=== PATIENT | female | born 1960 | race Caucasian/White ===

== ENCOUNTER 2016-09-10 15:46 | Emergency (ER) | payer BC, OTHER ==
[2016-09-10 16:16] VITALS: BP 120/66
--- NOTE | 2016-09-10 16:55 | UC ---
Hip/Pelvis Pain - HPI Summary HPI Summary: 4-6 weeks of bilateral hip (actually illiac crest) no know injury - History Of Current Complaint Chief Complaint: UCBackPain Stated Complaint: BILATERAL HIP PAIN Time Seen by Provider: 09/10/16 16:49 Hx Obtained From: Patient ?: No Mechanism Of Injury: n/a Onset/Duration: Gradual Onset, Lasting Weeks - 6, Still Present Timing: Constant Severity Initially: Mild Severity Currently: Mild Pain Intensity: 4 Pain Scale Used: 0-10 Numeric Location: Discrete At: - R&L illiac crests Character Of Pain: Aching Aggravating Factor(s): Movement Alleviating Factor(s): Nothing Associated Signs And Symptoms: Positive: Negative - Allergies/Home Medications Allergies/Adverse Reactions: Allergies Allergy/AdvReac Type Severity Reaction Status Date / Time Erythromycin Allergy Severe Anaphylatic Verified 09/03/13 08:11 Shock Bee Venom Allergy Unknown Verified 09/10/16 16:18 Reaction Details Meperidine [From Demerol HCl] Allergy hallucinate Verified 11/07/14 13:32 Home Medications: Home Medications Simvastatin TAB(NF) [Zocor(NF)] 20 mg PO 1700 09/10/16 [History Confirmed ] PMH/Surg Hx/FS Hx/Imm Hx Previously Healthy: Yes Endocrine History Of: Denies: Diabetes, Thyroid Disease Cardiovascular History Of: Denies: Cardiac Disorders, Hypertension, Pacemaker/ICD Respiratory History Of: Denies: COPD, Asthma GI/ History Of: Denies: Ulcer - Surgical History Surgical History: Yes Surgery Procedure, Year, and Place: TOTAL HYSTERECTOMY 1998. OVARIAN CYSTECTOMY 1981. TONSILLECTOMY - Family History Known Family History: Positive: None Family History: no reported cardiovascular issues in family lineage - Social History Occupation: Employed Full-time Lives: With Family Alcohol Use: None Substance Use Type: None Smoking Status (MU): Former Smoker Type: Cigarettes When Did the Patient Quit Smoking/Using Tobacco: 35 YRS AGO Household Exposure Type: Cigarettes - Immunization History Most Recent Tetanus Shot: 2008 Review of Systems Constitutional: Negative Skin: Negative Eyes: Negative ENT: Negative Respiratory: Negative Cardiovascular: Negative Gastrointestinal: Negative Genitourinary: Negative Motor: Negative Neurovascular: Negative Musculoskeletal: Arthralgia - R&L illiac Crests Neurological: Negative Psychological: Negative All Other Systems Reviewed And Are Negative: Yes Physical Exam Triage Information Reviewed: Yes Appearance: Well-Appearing, No Pain Distress, Obese Vital Signs: Initial Vital Signs Temp 98.1 F 09/10/16 16:12 Pulse 79 09/10/16 16:12 Resp 14 09/10/16 16:12 BP 120/66 09/10/16 16:12 Pulse Ox 100 09/10/16 16:12 Vital Signs Reviewed: Yes Eye Exam: Normal Eyes: Positive: Conjunctiva Inflamed ENT Exam: Normal ENT: Positive: Normal ENT inspection, Hearing grossly normal. Negative: Nasal congestion, Nasal drainage, Muffled/hoarse voice Neck exam: Normal Neck: Positive: Supple, Nontender Respiratory Exam: Normal Respiratory: Positive: Chest non-tender, No respiratory distress, No accessory muscle use Cardiovascular Exam: Normal Cardiovascular: Positive: RRR, No Murmur, Pulses Normal, Brisk Capillary Refill Abdominal Exam: Normal Abdomen Description: Positive: Nontender, No Organomegaly, Soft. Negative: CVA Tenderness (R), CVA Tenderness (L) Bowel Sounds: Positive: Present Musculoskeletal Exam: Normal Musculoskeletal: Positive: Strength Intact, ROM Intact, No Edema Neurological Exam: Normal Neurological: Positive: Alert, Muscle Tone Normal Psychological Exam: Normal Skin Exam: Normal Diagnostics - Radiology No standard instances Xray Interpretation: No Acute Changes Radiology Interpretation Completed By: Radiologist Hip Injury Course/Dx - Course Course Of Treatment: strengthening exercise, ice, ibuprofen follow with pcp as planned - Differential Dx/Diagnosis Differential Diagnosis/HQI/PQRI: Arthritis, Bursitis, Fracture, Sprain, Strain Provider Diagnoses: Arthritis Discharge - Discharge Plan Condition: Stable Disposition: HOME Patient Education Materials: Ibuprofen (By mouth), Core Strengthening Exercises (GEN), Arthritis (ED) Referrals: Vincenzo Montano MD [Primary Care Provider] - 09/15/16
--- NOTE | 2016-09-10 17:25 | RAD ---
INDICATION: Pain at the bilateral iliac crests TECHNIQUE: An AP view of the pelvis was obtained. FINDINGS: The bones are in normal alignment. No fracture is seen. There are very mild degenerative changes of the bilateral hips including very mild sclerotic change of the acetabular roofs. IMPRESSION: Mild degenerative changes in this otherwise normal single view radiograph.
== END 2016-09-10 17:39 | disposition home or self-care (01) ==
LOC: UCCORT 15:46
DX: M16.0 Bilateral primary osteoarthritis of hip (principal); Z88.1 Allergy status to other antibiotic agents; Z88.5 Allergy status to narcotic agent; Z87.891 Personal history of nicotine dependence
CPT/HCPCS: 72170; 99211; G0463

== ENCOUNTER 2017-08-05 07:05 | Day surgery (SDC) | payer BC ==
--- NOTE | 2017-08-04 19:34 | HP ---
BLANKS DUE TO VERY POOR VOICE QUALITY - POSSIBLE USE OF SPEAKER PHONE HISTORY AND PHYSICAL: DATE OF ADMISSION/SURGERY: 08/05/17 DATE OF OFFICE VISIT: 08/04/17 ATTENDING SURGEON: Dr. Amaro.* (DICTATED BY LORENA CLARK) PROCEDURE: ORIF of left first digit. CHIEF COMPLAINT: Left thumb fracture. 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 She saw her primary care doctor for workup with regards to why she became dizzy; however, has not had any x-rays concerning this. She states that while getting out of bed at night, she fell and she noted swelling and bruising at the first digit; however, was not seen until several days later in the ER after even encouraged to go by her family members. An x-ray there showed a displaced fracture of the distal phalanx of left hand. She continued to work without difficulty. She has not taken any pain medication. PAST MEDICAL HISTORY: 1. Intermittent asthma. 2. Hypothyroidism. 3. Carpal tunnel syndrome. 4. VT. 5. GERD. 6. Depressive disorder. 7. Vitamin D deficiency. 8. Dystrophy of the vulva. 9. Borderline hypertension. 10. History of osteoarthritis, multiple joints. PAST SURGICAL HISTORY: 1. LINCOLN-BSO in 1999. 2. Carpal tunnel release in 2008. 3. Cyst resection from right ovary. 4. Cholecystectomy. 5. Excision of benign nevus in 2014. 6. Appendectomy in 2017. MEDICATIONS: 1. Amitriptyline. 2. Omeprazole. 3. Simvastatin. 4. Synthroid. 5. Meloxicam. 6. Doxycycline. 7. Vitamin D supplementation. 8. Calcium supplementation. 9. Ventolin inhaler p.r.n. 10. Venlafaxine. 11. Glucosamine and chondroitin. ALLERGIES: 1. DEMEROL. 2. ERYTHROMYCIN. FAMILY MEDICAL HISTORY: Positive for diabetes, obesity, menopausal/ postmenopausal disorders, mixed hyperlipidemia and localized scleroderma. SOCIAL HISTORY: The patient is ; however, she re- in 2005 and lives with her spouse. 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 She has never smoked. Occasional alcohol use. Exercises daily. PHYSICAL EXAMINATION Performed by Dr. Amaro without any abnormal findings within the cardiac, lungs regions. MUSCULOSKELETAL: Full range of motion in the forearm, wrist and elbow without any pain. There is grating over the first metatarsal on the radial aspect, pain at the fracture site. Neurovascularly intact with radial and ulnar pulses 2+. RADIOGRAPHS: X-rays today obtained show a fracture of the distal phalanx of the first digit on the left hand, which is angulated greater than 30 degrees. ASSESSMENT: Closed fracture of the left thumb distal phalanx. PLAN: The patient will undergo an ORIF tomorrow by Dr. Amaro. She was unable to be cleared by her primary care doctor; however, she was contacted because he states while he is unable to formally clear her does not seems to be any contraindication to surgery based on her prior visits. She will attempt to get an EKG performed today; however, is unable to have one done tomorrow morning as well as have blood work at that time. She had many questions regarding the procedure, which are all answered by Dr. Amaro. LORENA CLARK [id number]/[facility] #: [id number] CLAY
[~2017-08-05 07:05] MED LIST: Buffered Lidocaine 0.9% SYRIN* 5 ML/SYR SYRINGE INTRADERM ONE
[2017-08-05] MEDS ORDERED: Buffered Lidocaine 0.9% SYRIN* 5 ML/SYR SYRINGE ONE (07:14)
[2017-08-05] MEDS ORDERED: ceFAZolin 2 GM in 100 MLS NS (*) BAG IVPB ONE (07:14)
[2017-08-05] MEDS ORDERED: Midazolam* 1 MG/ML 5 ML VIAL (5 MG) ONE (08:26)
[2017-08-05] MEDS ORDERED: Bupivacaine 0.5% SDV PF* 10-30ML VIAL ONE (08:37)
[2017-08-05] MEDS ORDERED: Lidocaine 1% MPF wEPI 200,000* 30 ML SDV ONE (08:37)
[2017-08-05] MEDS ORDERED: fentaNYL* 50 MCG/ML 2 ML VIAL (100 MCG VIAL) ONE (08:43)
[2017-08-05] MEDS ORDERED: Propofol* 10 MG/ML 20 ML BTL IV PUSH ONE (08:49)
[2017-08-05] MEDS ORDERED: Naloxone* 0.4 MG/ML 1 ML VIAL IV PRN (09:29)
[2017-08-05] MEDS ORDERED: Ondansetron INJ* 2 MG/ML VIAL IV PRN (09:29)
[2017-08-05] MEDS ORDERED: fentaNYL* 50 MCG/ML 2 ML VIAL (100 MCG VIAL) IV PRN (09:29)
[2017-08-05] MEDS ORDERED: oxyCODONE/Acetamin 5/325 MG* TAB PO PRN (09:29)
[2017-08-05] MEDS ORDERED: HYDROcodone/ACETAMIN 5-325 MG* 1 TAB PO PRN (09:29)
[2017-08-05 10:32] VITALS: BP 130/64
--- NOTE | 2017-08-05 21:28 | RAD ---
INDICATION: Displaced fracture LEFT thumb. COMPARISON: August 04, 2017 TECHNIQUE: 2 minutes 6 seconds fluoroscopy. FINDINGS: Spot images document placement of 3 percutaneous fixation wires across the comminuted fracture at the base of the proximal phalanx. IMPRESSION: Procedural fluoroscopy. CPT II Codes: 6045F
--- NOTE | 2017-08-06 11:19 | OP ---
OPERATIVE REPORT: DATE OF OPERATION: 08/05/17 DATE OF : 62 SURGEON: Mark Amaro MD APPLICATIONS TRAINER: Laura Katz. ANESTHESIOLOGIST: Vincenzo Lindquist MD ANESTHESIA: Monitored anesthesia, MAC, local anesthesia consisting of 18 mL of 50:50 ratio or 1:1 ratio of Marcaine 0.5% without epinephrine and lidocaine 1% without epinephrine. PRE-OP DIAGNOSIS: Left thumb proximal phalanx fracture, displaced. POST-OP DIAGNOSIS: Left thumb proximal phalanx fracture, displaced. OPERATIVE PROCEDURE: Closed reduction percutaneous pinning, left thumb proximal phalanx. ANTIBIOTICS: Ancef 2 g IV. IV FLUIDS: 650 mL crystalloid. SPECIMEN: None. IMPLANTS: 3 K-wires, each 0.045 in size. COMPLICATIONS: None. ESTIMATED BLOOD LOSS: Zero mL. 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 The patient eventually went to the emergency department and was given a thumb spica wrist brace. The patient presented to my clinic yesterday. She had a transverse fracture at the base, metadiaphyseal of the proximal phalanx of the left thumb. It was angulated in extension proximally 40 degrees. Discussed operative and nonoperative management. The patient opted for operative management. Discussed risks and potential complications including bleeding, infection, nerve or blood vessel injury, thumb pain, stiffness, osteoarthritis, failure of hardware. DESCRIPTION OF PROCEDURE: In preoperative holding, the patient signed a written consent. Operative extremity and digit were marked in preoperative holding. The patient was taken back to the operating room and kept on the stretcher. Monitored sedation was performed by Anesthesia. A local block consisting of a flexor tendon sheath block, digital nerve block, and a dorsal wheel with 18 mL of a mixture of 0.5% Marcaine and 1% lidocaine without epinephrine. I then brought the mini C-arm in and imaged the fracture and found that it was able to be reduced manually. It should be mentioned that a mini time-out was performed prior to the local anesthetic injection and the manipulation. The patient's left upper extremity was prepped with ChloraPrep. Draping was performed. Surgical time-out. A tourniquet had been placed above the left upper arm, but never inflated. The proximal phalanx of the left thumb was reduced closed. Reduction was held in place with the thumb flexed at the MCP joint. K-wire was placed from the radial base of the proximal phalanx bicortically, distal and ulnar. One pin was not sufficient to hold this reduction, however. I then re-reduced the bone and placed 2 pins from the radial base to distal and ulnar. This held the reduction nicely. I next placed a pin from the ulnar base to distal and radial, also bicortical. All views showed excellent reduction of bone and bicortical placement of pins. Exposed pins were cut and then bent and then re-cut. End caps were placed on them. Xeroform, 4 x 4s, sterile Webril, nonsterile Webril. A radial gutter splint followed by a volar splint were placed about the left wrist and over wrapped with an Shailesh bandage. The patient was awakened and brought to the PACU. DISPOSITION: The patient will take Percocet as needed for pain control. She is currently on doxycycline for a sinus infection. She will continue that course. The patient will follow up with me early next week, preferably Tuesday afternoon for conversion from a splint to a thumb spica cast. [id number]/[facility] #: [id number] CLAY
== END 2017-08-05 11:10 | disposition home or self-care (01) ==
LOC: OR 07:05
PROVIDERS: ATTEND Orthopaedic Surgery
DX: S62.522A Displaced fracture of distal phalanx of left thumb, initial encounter for closed fracture (principal); J45.909 Unspecified asthma, uncomplicated; E03.9 Hypothyroidism, unspecified; I47.2 Ventricular tachycardia; K21.9 Gastro-esophageal reflux disease without esophagitis; E55.9 Vitamin D deficiency, unspecified; M19.90 Unspecified osteoarthritis, unspecified site; F32.9 Major depressive disorder, single episode, unspecified; W19.XXXA Unspecified fall, initial encounter; Y92.003 Bedroom of unspecified non-institutional (private) residence as the place of occurrence of the external cause; Z83.3 Family history of diabetes mellitus
CPT/HCPCS: 76000; 93005; C1776; J2001; J2250; J2704; J3010

== ENCOUNTER 2018-09-08 18:02 | Emergency (ER) | payer BC ==
--- OUTSIDE RECORDS SUMMARY | 2018-09-08 18:13 | XMS REPORT | Continuity of Care Document ---
:1960 External Reference #:[id number] Author Name Vincenzo Montano MD Address [address] [place] [address] Care Team Providers Name Role Phone Vincenzo Montano MD Care Team Information Statistics Intern Unavailable Payers Date Identification Numbers Payment Provider Subscriber Effective: 2015 Policy Number: [id number] BS Ppo Anthony Esquivel Expires: 2016 PayID: [id number] [address] [address] [place] [phone] Onset: 2005 Policy Number: [employer] Risk Anthony Esquivel [id number] [facility] Group Number: RT HIP [address] [place] [address] Onset: 2000 Policy Number: [id number] [employer] Anthony Esquivel Group Number: [id number] [address] Group Name: Bilateral CTS Denied/[place] [address] Onset: 03/17/2007 Policy Number: [id number] [employer] Anthony Esquivel Group Number: [id number] [address] [address] [place] [address] Effective: 06/06/2017 Policy Number: [id number] [employer] Ppo Anthony Alvin PayID: [id number] [address] [address] [place] [phone] Advance Directives Description No Information Available Problems Date Description Provider Status Onset: 08/27/2009 Depressive disorder Vincenzo Montano MD Active Onset: 08/27/2009 Gastroesophageal reflux disease Vincenzo Montano MD Active Onset: 08/27/2009 Obesity Vincenzo Montano MD Active Onset: 02/27/2009 Vitamin D deficiency Vincenzo Montano MD Active Onset: 11/08/2008 Dystrophy of vulva Bozena Menendez MD Active Onset: 08/23/2008 Elevated blood-pressure reading Vincenzo Montano MD Active without diagnosis of hypertension Onset: 12/29/2007 Multiple joint pain Vincenzo Montano MD Active Onset: 05/15/2007 Carpal tunnel syndrome Vincenzo Montano MD Active Onset: 06/28/2006 FH: Diabetes mellitus Vincenzo Montaon MD Active Onset: 10/20/2005 Morbid obesity Vincenzo Montano MD Active Onset: 04/05/2005 Localized scleroderma Bozena Menendez MD Active Onset: 04/05/2005 Mixed hyperlipidemia Bozena Menendez MD Active Onset: 04/05/2005 Menopausal and postmenopausal Bozena Menendez MD Active disorders Onset: 04/07/2015 Mild recurrent major depression Vincenzo Montano MD Active Onset: 04/07/2016 Mild intermittent asthma Vincenzo Montano MD Active Onset: 04/07/2016 Hypothyroidism Vincenzo Montano MD Active Family History Date Family Member(s) Observation Comments Father Hypertension Father Alzheimer's Disease early Mother due to Dmii () Mother due to Renal Failure () Mother due to CAD () - at age 61 due to cad. onset of heart disease age 59. 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 ETOH Use Occasionally consumes alcohol Tobacco Use Start: Unknown Patient has never smoked Smoking Status Reviewed: 04/19/18 Patient has never smoked Exercise Exercises regularly walks 45min daily; Type/Frequency 11/26/2013 counselled 150min per week, 10k steps per day; 02/03/15 counselled [facility] Allergies, Adverse Reactions, Alerts Date Description Reaction Status Severity Comments 10/07/2004 Erythromycin Active Hives 10/21/2014 Demerol Active Hallucinations Medications Medication Date Status Form Strength Qnty SIG Indications Ordering Provider Levothyroxine 05/03 Active Tablets 75mcg 30tab 1 by mouth E03.9 Digiovann Sodium /2017 s every day Vincenzo kaufman MD Ventolin HFA 08/21 Active Aerosol 108(90Bas 8gm 2 puffs every J45.20 Digiovann /2015 e) 3 hours as a, mcg/Act needed for Vincenzo, cough or sob Hydrocortisone 02/03 Active Cream 0.2% 60gm apply once or N90.4 Cunningha Valerate /2014 twice daily Bozena handy, to vulva as MD needed for itching and inflammation Simvastatin 05/02 Active Tablets 40mg 30tab Take One E78.2 Digiovann /2012 s Tablet By a, Mouth Every , Day In The MD Evening Meloxicam 10/23 Active Tablets 15mg 30tab Take One M25.50 Digiovann /2012 s Tablet By a, Mouth Every Vincenzo, Day With Food MD as Needed For Joint Pain Venlafaxine HCL 12/26 Active Caps ER 150mg 60cap Take Two F33.0 Digiovann ER /2008 24HR s Capsules By a, Mouth Every Vincenzo, Day Omeprazole 12/28 Active Capsules 20mg 30cap Take One K21.9 Digiovann /2007 DR s Capsule By a, Mouth Once A Vincenzo, Day, Before MD Meal Amitriptyline 11/21 Active Tablets 10mg 60tab take 2 M25.50 Digiovann HCL /2006 s tablets by a, mouth at Vincenzo, bedtime F33.0 Vitamin D Active Tablets 2000Unti 1 by mouth E55.9 Unknown (Cholecalciferol) every day Calcium 500+D High Active Tablets 500-400mg 1 by mouth E55.9 Unknown Potency -Unit every day Glucosamine Active Capsules 1500Com 2 PO every Unknown Chondroitin 1500 day Complex Nitrofurantoin 04/19/2018 - Hx Capsules 100mg 1 1 by mouth R30.0 Digiovan Macrocrystal 04/26/2018 4 twice a day na, c for 7 days Catarina a , SUBSTANCE ABUSE CLINICIAN p s Amoxicillin/Clavula 11/30/2017 - Hx Tablets 875-125mg 1 1 by mouth J20.9 Schumacher, pedro Potassium 12/07/2017 4 twice a day daniella Garibay DO a b s Benzonatate 11/30/2017 - Hx Capsules 200mg 3 take one J20.9 Schumacher, 12/10/2017 0 capsule by anni Garibay mouth three DO a times a day p as needed for s cough Doxycycline Hyclate 08/02/2017 - Hx Tablets 100mg 2 1 by mouth J01.10 Digiovan 08/12/2017 0 twice a day x na, t 10 days (w/ Vincenzo, a food but not MD armendariz milk) s Benzonatate 08/02/2017 - Hx Capsules 200mg 3 1 pill by R05 Digiovan 08/12/2017 0 mouth 3 times na, c a day as Vincenzo, a needed for MD belle cough s (swallow whole) Guaifenesin ac 08/02/2017 - Hx Syrup 100-10mg/ 4 10 R05 Digiovan 08/12/2017 5ML 7 milliliters na, 3 by mouth rozina Loya every 4 l hours as needed for cough Work Excuse 08/02/2017 - Hx Due to R05 Digiovan 08/07/2017 illness, will yulia miss work Vincenzo, 07/31 thru 08/05. Return Tuesday 08/08 at full duty Levothyroxine 04/08/2017 - Hx Tablets 50mcg 3 take one E03.9 Digiovan Sodium 05/03/2018 0 tablet by na, t mouth every Vincenzo, a day MD armendariz s Tramadol HCL 09/30/2016 - Hx Tablets 50mg 3 take 1/2 M79.1 Digiovan 08/20/2018 0 tablet by na, t mouth up to 2 Vincenzo, a times a day MD armendariz as needed for s severe pain Levothyroxine 04/07/2016 - Hx Tablets 25mcg 4 take 1.5 E03.9 Digiovan Sodium 04/08/2017 5 tablets by na, t mouth every Vincenzo, a day MD armendariz s Doxycycline Hyclate 01/23/2016 - Hx Tablets DR 100mg 2 1 by mouth L03.21 Digiovan 02/02/2016 0 twice a day x 1 na, t 10 days (w/ Vincenzo, a food but not MD armendariz milk) s Amoxicillin/Clavula 10/31/2015 - Hx Tablets 875-125mg 2 1 by mouth Cunningh pedro Potassium 11/10/2015 0 twice a day am, t MD mandeep Seals s Itraconazole 10/22/2015 - Hx Capsules 100mg 3 1 pill by L03.01 Digiovan 10/24/2015 0 mouth once a 1 na, c day Vincenzomandeep fabian MD Terbinafine HCL 10/22/2015 - Hx Tablets 250mg 3 1 pill by L03.01 Digiovan 11/23/2015 0 mouth once 1 na, t daily Vincenzomandeep fabian MD Fluconazole 10/20/2015 - Hx Tablets 150mg 1 1 pill once Digiovan 10/29/2015 t by mouth for na, a yeast Vincenzo, b infection MD monterroso Cephalexin 10/06/2015 - Hx Tablets 250mg 2 1 pill by L03.01 Digiovan 10/13/2015 1 mouth 3 times 1 na, t a day for 7 Vincenzo, a days MD kala monterroso Levofloxacin 08/22/2015 - Hx Tablets 250mg 7 1 pill by J04.10 Digiovan 08/29/2015 t mouth once na, a daily for 7 Vincenzo, b days MD monterroso Benzonatate 08/22/2015 - Hx Capsules 200mg 3 1 pill by J04.10 Digiovan 09/01/2015 0 mouth 3 times na, c a day as Vincenzo, a needed for MD barbra monterroso (swallow whole) Naproxen 01/09/2015 - Hx Tablets 375mg 1 by mouth Unknown 10/05/2014 twice a day prn Albenza 09/23/2014 - Hx Tablets 200mg 4 2 Pills By 127.4 Digiovan 10/08/2014 t Mouth X 1 na, a Dose, Repeat Vincenzo, b In 2 Weeks MD monterroso (Generic) Sulfamethoxazole/Tr 06/24/2014 - Hx Tablets 800-160mg 1 1 by mouth 599.0 Digiovan imethoprim DS 07/01/2014 4 every 12 na, t hours for 7 Catarina a days , HAILE monterroso Benzonatate 06/24/2014 - Hx Capsules 200mg 3 1 by mouth 465.9 Digiovan 07/20/2014 0 every 8 hours na, c as needed for Catarina a cough, may , SUBSTANCE ABUSE CLINICIAN barbra hogan s drowsiness Meloxicam 10/23/2012 - Hx Tablets 15mg 3 Take One M25.50 Digiovan 04/19/2018 0 Tablet By na, t Mouth Every Vincenzo, a Day With Food MD armendariz as Needed For s Joint Pain Hydrocortisone 07/10/2012 - Hx Cream 0.2% 6 apply twice Cunningh Valerate 03/19/2013 0 daily to am, g vulva as MD rozina Seals needed for itching and inflammation Venlafaxine HCL ER 12/26/2008 - Hx Caps ER 150mg 6 Take Two F33.0 Digiovan 04/19/2018 24HR 0 Capsules By na, c Mouth Every Vincenzo, a Day MD barbra monterroso Amitriptyline HCL 11/21/2006 - Hx Tablets 10mg 3 Take One M25.50 Digiovan 04/19/2018 0 Tablet By na, t Mouth AT Vincenzo, a Bedtime MD kala monterroso F33.0 Transderm-Nitro - Hx Patches 24HR 0.1mg/HR 30units on am off Unknown 03/19/2014 pm qdt o chest wall for 12 hours J45.20 - Hx Nebulizer 100units use 1 dose Unknown 10/06/2016 every 4-6 hours as needed Tylenol 8 Hour - Hx Tablets ER 650mg 2 tabs Unknown Arthritis Pain 04/08/2017 twice daily for arthritis pain Immunizations CPT Code Status Date Vaccine Reaction Lot # [id number] Given 03/22/2018 Flu Vaccine NOS Pt says she got her flu shot at work in mid March. SA,[employer] 04/19/18 Q2036 Given 04/06/2017 Flulaval Immunization [facility] [address] Given 04/07/2016 Influenza Virus [facility] Vaccine,Quadrivalent,Split,P reserv Free, 0.5mL,[place] [address] Given 02/04/2014 Influenza Virus Vaccine,Quadrivalent,Split,P reserv Free, 0.5mL,Im [address] Given 04/06/2013 Tetanus And Diptheria Toxoids For Adult Use-preservative free 63631 Given 02/14/2012 Afluria Or Fluvirin Flu Vac Intramuscular 00152 Given 03/15/2011 Afluria Or Fluvirin Flu Vac [facility] Intramuscular 05011 Given 03/11/2010 Afluria Or Fluvirin Flu Vac Intramuscular 49835 Given 08/27/2009 Hepatitis B Vac Adolescent 2 Dose Schedule 31333 Given 04/02/2009 Hepatitis B Vac Adolescent 2 Dose Schedule 72124 Given 02/27/2009 Hepatitis B Vac Adolescent 2 Dose Schedule 54104 Given 09/05/2003 Tdap (Adacel) Ages 7 And Above Only 12699 Given 10/04/1998 Tetanus And Diptheria Toxoids For Adult Use-preservative free Vital Signs Date Vital Result Comment 09/05/2018 2:14pm Body Temperature 98.9 F Weight 240.00 lb Heart Rate 102 /min BP Systolic 122 mmHg BP Diastolic 72 mmHg Respiratory Rate 22 /min O2 % BldC Oximetry 96 % Ra 05/03/2018 8:24am Weight 234.00 lb Heart Rate 72 /min BP Systolic 124 mmHg BP Diastolic 80 mmHg Respiratory Rate 18 /min Height 65 inches 5'5" BMI (Body Mass Index) 38.9 kg/m2 04/19/2018 3:58pm Body Temperature 98.3 F tympanic Weight 240.50 lb Heart Rate 84 /min BP Systolic 132 mmHg BP Diastolic 74 mmHg Respiratory Rate 18 /min Height 65 inches 5'5"11/30/17 BMI (Body Mass Index) 40.0 kg/m2 12/13/2017 3:51pm Weight 223.00 lb Heart Rate 88 /min BP Systolic 142 mmHg BP Diastolic 70 mmHg Respiratory Rate 18 /min Height 65 inches 5'5"11/30/17 O2 % BldC Oximetry 98 % BMI (Body Mass Index) 37.1 kg/m2 11/30/2017 4:14pm Body Temperature 98.8 F Weight 232.00 lb Heart Rate 82 /min BP Systolic 122 mmHg BP Diastolic 62 mmHg Respiratory Rate 18 /min Height 65 inches 5'5"11/30/17 O2 % BldC Oximetry 95 % BMI (Body Mass Index) 38.6 kg/m2 10/17/2017 3:46pm Weight 232.00 lb Heart Rate 86 /min BP Systolic 148 mmHg BP Diastolic 84 mmHg Respiratory Rate 17 /min Height 65 inches 5'5" BMI (Body Mass Index) 38.6 kg/m2 08/02/2017 4:39pm Body Temperature 99.7 F Weight 223.00 lb Heart Rate 107 /min BP Systolic 120 mmHg BP Diastolic 74 mmHg Respiratory Rate 22 /min Height 65 inches 5'5" O2 % BldC Oximetry 94 % ra BMI (Body Mass Index) 37.1 kg/m2 04/08/2017 2:45pm Weight 231.00 lb Heart Rate 72 /min BP Systolic 128 mmHg BP Diastolic 84 mmHg Respiratory Rate 18 /min Height 65 inches 5'5" BMI (Body Mass Index) 38.4 kg/m2 10/06/2016 3:45pm Body Temperature 98.1 F Weight 230.00 lb Heart Rate 81 /min BP Systolic 120 mmHg BP Diastolic 80 mmHg Respiratory Rate 18 /min Height 65 inches 5'5" O2 % BldC Oximetry 96 % Ra BMI (Body Mass Index) 38.3 kg/m2 09/20/2016 4:35pm Weight 230.00 lb Heart Rate 74 /min BP Systolic 130 mmHg BP Diastolic 82 mmHg Respiratory Rate 16 /min Height 65 inches 5'5" BMI (Body Mass Index) 38.3 kg/m2 04/07/2016 3:41pm Weight 226.00 lb Heart Rate 74 /min BP Systolic 120 mmHg BP Diastolic 82 mmHg Respiratory Rate 18 /min Height 65 inches 5'5" BMI (Body Mass Index) 37.6 kg/m2 02/16/2016 4:05pm Weight 223.56 lb Heart Rate 80 /min BP Systolic 134 mmHg BP Diastolic 82 mmHg Respiratory Rate 12 /min Height 65 inches 5'5" 02/16/16 SA BMI (Body Mass Index) 37.2 kg/m2 01/23/2016 3:29pm Body Temperature 98.0 F Weight 220.00 lb Heart Rate 72 /min BP Systolic 122 mmHg BP Diastolic 80 mmHg Respiratory Rate 18 /min Height 64.5 inches 5'4.50" BMI (Body Mass Index) 37.2 kg/m2 10/29/2015 3:53pm Weight 225.00 lb Heart Rate 70 /min BP Systolic 118 mmHg LEFT Reg BP Diastolic 72 mmHg LEFT Reg Respiratory Rate 18 /min Height 64.5 inches 5'4.50" BMI (Body Mass Index) 38.0 kg/m2 10/22/2015 2:59pm Weight 228.00 lb Heart Rate 72 /min BP Systolic 120 mmHg BP Diastolic 82 mmHg Respiratory Rate 18 /min Height 64.5 inches 5'4.50" BMI (Body Mass Index) 38.5 kg/m2 10/06/2015 3:47pm Weight 228.00 lb Heart Rate 74 /min BP Systolic 120 mmHg BP Diastolic 80 mmHg Respiratory Rate 18 /min Height 64.5 inches 5'4.50" BMI (Body Mass Index) 38.5 kg/m2 08/22/2015 3:22pm Body Temperature 99.9 F Weight 228.00 lb Heart Rate 88 /min BP Systolic 120 mmHg BP Diastolic 70 mmHg Respiratory Rate 22 /min Height 64.5 inches 5'4.50" O2 % BldC Oximetry 98 % Ra BMI (Body Mass Index) 38.5 kg/m2 04/07/2015 10:38am Weight 229.00 lb Heart Rate 76 /min BP Systolic 136 mmHg L/Reg BP Diastolic 78 mmHg L/Reg Respiratory Rate 19 /min Height 64.5 inches 5'4.50" BMI (Body Mass Index) 38.7 kg/m2 02/03/2015 3:36pm Weight 230.00 lb Heart Rate 72 /min BP Systolic 120 mmHg BP Diastolic 80 mmHg Respiratory Rate 18 /min Height 64.4 inches 5'4.40" BMI (Body Mass Index) 39.0 kg/m2 01/13/2015 9:18am Weight 226.00 lb Heart Rate 74 /min BP Systolic 138 mmHg L/Reg BP Diastolic 76 mmHg L/Reg Respiratory Rate 22 /min Height 64.4 inches 5'4.40" BMI (Body Mass Index) 38.3 kg/m2 11/15/2014 3:42pm Weight 231.00 lb Up 2# Heart Rate 74 /min BP Systolic 128 mmHg L/Reg BP Diastolic 72 mmHg L/Reg Respiratory Rate 17 /min Height 64.4 inches 5'4.40" BMI (Body Mass Index) 39.2 kg/m2 11/04/2014 1:15pm Weight 229.00 lb Up 3# Heart Rate 64 /min BP Systolic 122 mmHg L/Reg BP Diastolic 82 mmHg L/Reg Respiratory Rate 18 /min Height 64.4 inches 5'4.40" BMI (Body Mass Index) 38.8 kg/m2 10/21/2014 3:25pm Body Temperature 98.5 F Weight 226.00 lb Down 2# Heart Rate 74 /min BP Systolic 132 mmHg L/Reg BP Diastolic 92 mmHg L/Reg Respiratory Rate 18 /min Height 64.4 inches 5'4.40" BMI (Body Mass Index) 38.3 kg/m2 09/17/2014 1:57pm Weight 228.00 lb Up 14# Heart Rate 68 /min BP Systolic 118 mmHg R/Reg BP Diastolic 82 mmHg R/Reg Respiratory Rate 19 /min Height 64.4 inches 5'4.40" BMI (Body Mass Index) 38.6 kg/m2 06/24/2014 4:00pm Body Temperature 98.3 F Weight 214.00 lb Heart Rate 88 /min BP Systolic 122 mmHg BP Diastolic 74 mmHg Respiratory Rate 18 /min O2 % BldC Oximetry 98 % Ra 02/11/2014 11:15am BP Systolic 124 mmHg L seated at rest BP Diastolic 84 mmHg L seated at rest 02/11/2014 11:15am Weight 219.00 lb Up 6# Heart Rate 82 /min BP Systolic 148 mmHg R/LG BP Diastolic 88 mmHg R/LG Respiratory Rate 17 /min Height 63 inches 5'3" 11/26/2013 3:45pm Weight 213.00 lb Heart Rate 74 /min BP Systolic 116 mmHg BP Diastolic 80 mmHg Respiratory Rate 18 /min Height 63 inches 5'3" 10/08/2013 2:13pm Weight 211.00 lb Down 2# Heart Rate 78 /min BP Systolic 118 mmHg L/Reg BP Diastolic 82 mmHg L/Reg Respiratory Rate 18 /min Height 63 inches 5'3" 08/28/2013 2:36pm Body Temperature 98.1 F Weight 213.00 lb Heart Rate 70 /min BP Systolic 116 mmHg BP Diastolic 78 mmHg Respiratory Rate 18 /min Height 63 inches 5'3" 08/02/2013 9:01am Weight 212.00 lb Heart Rate 76 /min BP Systolic 120 mmHg BP Diastolic 78 mmHg Respiratory Rate 18 /min 07/12/2013 9:26am Body Temperature 97.7 F Weight 210.00 lb Heart Rate 76 /min BP Systolic 130 mmHg BP Diastolic 82 mmHg Respiratory Rate 18 /min Results Test Date Facility Test Result H/L Range Note Laboratory test 05/01/2018 [facility] Thyroid Stim 3.02 uIU/mL N 0.30-4.20 1 finding Lab Dept Hormone [phone] Vitamin D,25-Hydroxy 27.5 ng/mL Low 30.0-100.0 2 LDL Cholesterol 05/01/2018 [facility] Cholesterol 184 mg/dL <200 3 Profile Lab Dept [phone] Triglycerides 118 mg/dL <150 4 HDL Cholesterol 60 mg/dL >40 5 LDL-Cholesterol 100 mg/dL < 100 6 CBS W/Automated 05/01/2018 [facility] White Blood 6.8 K/uL N 3.1-10.7 Diff Lab Dept Count [phone] Red Blood Count 4.66 M/uL N 3.90-5.40 Hemoglobin 14.3 gm/dL N 11.6-15.8 Hematocrit 44.5 % N 36.0-46.1 Mean Cell Volume 95.5 fl N 80.9-99.0 Mean Corpuscular HGB 30.7 pg N 25.9-32.7 Mean Corpuscular HGB Conc 32.1 g/dL N 30.8-34.3 Platelet Count 297 K/uL N 155-360 Red Cell Distri Width SD 41.8 fl N 3-47 Red Cell Distri Width %CV 12.3 % N 11.7-14.4 Mean Platelet Volume 9.3 fL N 8.9-12.4 Neut% 56.3 % N 40.4-72.8 Lymph % 30.0 % N 20.0-42.0 [place] % 7.8 % N 4.3-13.2 Eo% 5.0 % N 0.0-6.6 Bas% 0.9 % N 0.0-1.1 Neut# 3.85 K/uL N 1.8-7.0 Lymph # 2.05 K/uL N 1.0-4.0 [place] # 0.53 K/uL N 0.3-0.9 Eos # 0.34 K/uL N 0.0-0.5 Baso # 0.06 K/uL N 0.0-0.1 Liver Function 05/01/2018 [facility] Total Protein 7.8 g/dL N 6.4-8.2 Tests Lab Dept [phone] Albumin 3.8 g/dL N 3.4-5.0 Globulin 4.0 g/dL N 1.9-4.3 Alb/Glob 1.0 ratio Bilirubin,Total 0.3 mg/dL N 0.2-1.0 Bilirubin,Direct 0.1 mg/dL N 0.0-0.2 Bilirubin,Indirect 0.2 mg/dL N 0.0-0.9 Sgot/Ast 19 U/L N 15-37 SGPT/Alt 30 U/L N 12-78 Alkaline Phosphatase 83 U/L N 45-117 Laboratory test 04/19/2018 [facility] Microbiology res 7 finding <SEE NOTE> LDL Cholesterol 10/17/2017 [facility] Cholesterol 247 mg/ dL High <200 8, 9 Profile (315)- - Triglycerides 171 mg/dL High <150 10 HDL Cholesterol 49 mg/dL >40 11 LDL-Cholesterol 164 mg/dL < 100 12 Liver Function 10/17/2017 [facility] Total Protein 7.4 g/ dL N 6.4-8.2 Tests (315)- - Albumin 3.6 g/dL N 3.4-5.0 Globulin 3.8 g/dL N 1.9-4.3 Alb/Glob 0.9 ratio Bilirubin,Total 0.3 mg/dL N 0.2-1.0 Bilirubin,Direct < 0.1 mg/dL N 0.0-0.2 Bilirubin,Indirect 0.2 mg/dL N 0.0-0.9 Sgot/Ast 27 U/L N 15-37 SGPT/Alt 49 U/L N 12-78 Alkaline Phosphatase 86 U/L N 45-117 BMP (Basic) 10/17/2017 [facility] Glucose 102 mg/dL N 74-106 (315)- - BUN 22 mg/dL High 7-18 Creatinine 0.8 mg/dL N 0.6-1.3 Glom Filtration Rate, Estimate >60 mL/min >60 If >60 mL/min >60 13 BUN/Creat 27.5 ratio Sodium 142 mmol/L N 136-145 Potassium 4.5 mmol/L N 3.5-5.1 Chloride 107 mmol/L N 98-107 Carbon Dioxide 28 mmol/L N 21-32 Anion Gap 7 mEq/L Low 8-16 Calcium 8.9 mg/dL N 8.5-10.1 Laboratory 10/17/2017 [facility] Vitamin 23.4 Low 30.0- 100.0 14 test finding (315)- - D,25-Hydroxy ng/mL Laboratory 10/17/2017 [facility] Thyroid Stim 2.09 N 0.30-4.20 test finding (315)- - Hormone uIU/mL Laboratory 03/29/2017 [facility] Vitamin 34.0 30.0- 100.0 15, 16 test finding (315)- - D,25-Hydroxy ng/mL Thyroid Stim Hormone 2.49 uIU/mL N 0.30-4.20 Basic (BMP) 03/29/2017 [facility] Glucose 107 mg/dL High 74-106 (315)- - BUN 14 mg/dL N 7-18 Creatinine 0.8 mg/dL N 0.6-1.3 Glom Filtration Rate, Estimate >60 mL/min >60 If >60 mL/min >60 17 BUN/Creat 17.5 ratio Sodium 141 mmol/L N 136-145 Potassium 4.3 mmol/L N 3.5-5.1 Chloride 107 mmol/L N 98-107 Carbon Dioxide 28 mmol/L N 21-32 Anion Gap 6 mEq/L Low 8-16 Calcium 8.8 mg/dL N 8.5-10.1 Liver Function 03/29/2017 [facility] Total Protein 7.7 g/ dL N 6.4-8.2 Tests (315)- - Albumin 3.7 g/dL N 3.4-5.0 Globulin 4.0 g/dL N 1.9-4.3 Alb/Glob 0.9 ratio Bilirubin,Total 0.2 mg/dL N 0.2-1.0 Bilirubin,Direct < 0.1 mg/dL N 0.0-0.2 Bilirubin,Indirect 0.1 mg/dL N 0.0-0.9 Sgot/Ast 16 U/L N 15-37 SGPT/Alt 28 U/L N 12-78 Alkaline Phosphatase 81 U/L N 45-117 LDL Cholesterol 03/29/2017 [facility] Cholesterol 203 mg/ dL High <200 18 Profile (315)- - Triglycerides 166 mg/dL High <150 19 HDL Cholesterol 54 mg/dL >40 20 LDL-Cholesterol 116 mg/dL < 100 21 Laboratory test 09/27/2016 [facility] Thyroid Stim 3.02 N 0.30-4.20 22 finding (315)- - Hormone uIU/mL Laboratory test 09/27/2016 [facility] Vitamin 36.0 ng/mL 30.0-100.0 23 finding (315)- - D,25-Hydroxy LDL Cholesterol 09/27/2016 [facility] Cholesterol 211 mg/ dL High <200 24 Profile (315)- - Triglycerides 179 mg/dL High <150 25 HDL Cholesterol 50 mg/dL >40 26 LDL-Cholesterol 125 mg/dL < 100 27 CBS W/Automated 08/18/2016 [facility] White Blood 12.7 K/ uL High 3.1-10.7 28 Diff (315)- - Count Red Blood Count 3.73 M/uL Low 3.90-5.40 Hemoglobin 11.7 gm/dL N 11.6-15.8 Hematocrit 35.7 % Low 36.0-46.1 Mean Cell Volume 95.7 fl N 80.9-99.0 Mean Corpuscular HGB 31.4 pg N 25.9-32.7 Mean Corpuscular HGB Conc 32.8 g/dL N 30.8-34.3 Platelet Count 262 K/uL N 150-400 Red Cell Distri Width SD 42.7 fl N 3-47 Red Cell Distri Width %CV 12.6 % N 11.7-14.4 Mean Platelet Volume 9.6 fL N 8.9-12.4 Neut% 83.4 % High 40.4-72.8 Lymph % 9.1 % Low 20.0-42.0 [place] % 7.3 % N 4.3-13.2 Eo% 0.1 % N 0.0-6.6 Bas% 0.1 % N 0.0-1.1 Neut# 10.57 K/uL High 1.8-7.0 Lymph # 1.15 K/uL N 1.0-4.0 [place] # 0.93 K/uL High 0.3-0.9 Eos # 0.01 K/uL N 0.0-0.5 Baso # 0.01 K/uL N 0.0-0.1 Ua RFX Micro & 08/17/2016 [facility] Urine Color YELLOW Yellow 29 Culture II (315)- - Urine Clarity CLEAR Clear Urine Glucose - Dipstick NEGATIVE mg/dL Negative Urine Bilirubin - Dipstick NEGATIVE Negative Urine Ketone NEGATIVE mg/dL Negative Urine Specific [place] <=1.005 Low 1.010-1.030 Urine Blood NEGATIVE Negative Urine PH 6.0 Low 6.5-7.5 Urine Protein - Dipstick NEGATIVE mg/dL Negative Urine Urobilinogen - Dipstick 0.2 E.U./dL N 0.2-1.0 Urine Nitrite - Dipstick NEGATIVE Negative Urine Leuk Esterase NEGATIVE Negative Source: URINE, CLEAN CAT <SEE NOTE> 30 Comprehensive Metabolic 08/17/2016 [facility] Glucose 114 mg/dL High 74-106 Panel (315)- - BUN 14 mg/dL N 7-18 Creatinine 0.9 mg/dL N 0.6-1.3 Glom Filtration Rate, Estimate >60 mL/min >60 If >60 mL/min >60 31 BUN/Creat 15.5 ratio Sodium 140 mmol/L N 136-145 Potassium 4.0 mmol/L N 3.5-5.1 Chloride 105 mmol/L N 98-107 Carbon Dioxide 28 mmol/L N 21-32 Anion Gap 7 mEq/L Low 8-16 Calcium 9.0 mg/dL N 8.5-10.1 Total Protein 7.7 g/dL N 6.4-8.2 Albumin 4.0 g/dL N 3.4-5.0 Globulin 3.7 g/dL N 1.9-4.3 Alb/Glob 1.1 ratio Bilirubin,Total 0.5 mg/dL N 0.2-1.0 Sgot/Ast 14 U/L Low 15-37 32 SGPT/Alt 29 U/L N 12-78 Alkaline Phosphatase 75 U/L N 45-117 Laboratory test 08/17/2016 [facility] Lipase 91 U/L N 73-393 finding (315)- - CBS W/Automated 08/17/2016 [facility] White Blood 12.7 K/ uL High 3.1-10.7 Diff (315)- - Count Red Blood Count 4.29 M/uL N 3.90-5.40 Hemoglobin 13.6 gm/dL N 11.6-15.8 Hematocrit 40.0 % N 36.0-46.1 Mean Cell Volume 93.2 fl N 80.9-99.0 Mean Corpuscular HGB 31.7 pg N 25.9-32.7 Mean Corpuscular HGB Conc 34.0 g/dL N 30.8-34.3 Platelet Count 264 K/uL N 150-400 Red Cell Distri Width SD 42.0 fl N 3-47 Red Cell Distri Width %CV 12.6 % N 11.7-14.4 Mean Platelet Volume 9.3 fL N 8.9-12.4 Neut% 75.8 % High 40.4-72.8 Lymph % 13.6 % Low 20.0-42.0 [place] % 7.2 % N 4.3-13.2 Eo% 3.1 % N 0.0-6.6 Bas% 0.3 % N 0.0-1.1 Neut# 9.64 K/uL High 1.8-7.0 Lymph # 1.73 K/uL N 1.0-4.0 [place] # 0.91 K/uL High 0.3-0.9 Eos # 0.39 K/uL N 0.0-0.5 Baso # 0.04 K/uL N 0.0-0.1 Slide Review 08/17/2016 [facility] Slide Review . 33 (315)- - Laboratory test 05/26/2016 [facility] Thyroid Stim 2.68 N 0.30-4.2 34 finding (315)- - Hormone uIU/mL 0 BMP (Basic) 03/29/2016 [facility] Glucose 89 mg/dL N 74 -106 35 (315)- - BUN 16 mg/dL N 7-18 Creatinine 0.9 mg/dL N 0.6-1.3 Glom Filtration Rate, Estimate >60 mL/min N >60 If >60 mL/min N >60 36 BUN/Creat 17.7 ratio N Sodium 142 mmol/L N 136-145 Potassium 4.1 mmol/L N 3.5-5.1 Chloride 108 mmol/L High 98-107 Carbon Dioxide 29 mmol/L N 21-32 Anion Gap 5 mEq/L Low 8-16 Calcium 8.7 mg/dL N 8.5-10.1 Laboratory test 03/29/2016 [facility] Vitamin 36.0 ng/mL N 30.0-100.0 37 finding (315)- - D,25-Hydroxy Thyroid Stim Hormone 4.93 uIU/mL High 0.30-4.20 Magnesium 2.0 mg/dL N 1.8-2.4 Vitamin B12 483 pg/mL N 193-986 Liver Function 03/29/2016 [facility] Total Protein 7.1 g/ dL N 6.4-8.2 Tests (315)- - Albumin 3.6 g/dL N 3.4-5.0 Globulin 3.5 g/dL N 1.9-4.3 Alb/Glob 1.0 ratio N Bilirubin,Total 0.3 mg/dL N 0.2-1.0 Bilirubin,Direct < 0.1 mg/dL N 0.0-0.2 Bilirubin,Indirect 0.2 mg/dL N 0.0-0.9 Sgot/Ast 22 U/L N 15-37 SGPT/Alt 35 U/L N 12-78 Alkaline Phosphatase 70 U/L N 45-117 LDL Cholesterol 03/29/2016 [facility] Cholesterol 224 mg/ dL High <200 38 Profile (315)- - Triglycerides 204 mg/dL High <150 39 HDL Cholesterol 44 mg/dL N >40 40 LDL-Cholesterol 139 mg/dL N < 100 41 Affirm 10/29/2015 [facility] Trichomonas Vaginalis Negative Negative Gardnerella Vaginalis Negative Negative Ashley Species Negative Negative Laboratory test 10/29/2015 [facility] Vag/Cerv SEE NOTE 42 finding Culture Laboratory test 10/06/2015 [facility] Urine Culture Microbiology res 43 finding <SEE NOTE> Liver Function 10/03/2015 [facility] Total Protein 7.5 g/ dL 6.4-8 44 Tests (315)- - .2 Albumin 3.6 g/dL 3.4-5.0 Globulin 3.9 g/dL 1.9-4.3 Alb/Glob 0.9 ratio Bilirubin,Total 0.2 mg/dL 0.2-1.0 Bilirubin,Direct < 0.1 mg/dL 0.0-0.2 Bilirubin,Indirect 0.1 mg/dL 0.0-0.9 Sgot/Ast 20 U/L 15-37 SGPT/Alt 36 U/L 12-78 Alkaline Phosphatase 80 U/L 45-117 Basic Metabolic Panel 10/03/2015 [facility] Glucose 100 mg/dL 74-106 (315)- - BUN 21 mg/dL High 7-18 Creatinine 0.9 mg/dL 0.6-1.3 Glom Filtration Rate, Estimate >60 mL/min >60 If >60 mL/min >60 45 BUN/Creat 23.3 ratio Sodium 141 mmol/L 136-145 Potassium 4.0 mmol/L 3.5-5.1 Chloride 107 mmol/L 98-107 Carbon Dioxide 26 mmol/L 21-32 Anion Gap 8 mEq/L 8-16 Calcium 8.4 mg/dL Low 8.5-10.1 LDL Cholesterol 10/03/2015 [facility] Cholesterol 168 mg/ dL <200 46 Profile (315)- - Triglycerides 128 mg/dL <150 47 HDL Cholesterol 50 mg/dL >40 48 LDL-Cholesterol 92 mg/dL < 100 49 Lipid Treatment 03/20/2015 [facility] Cholesterol 172 mg/dL 50-199 50 Triglycerides 154 mg/dL 30-200 HDL 41 mg/dL 35-85 51 Chol/ HDL Ratio 4.2 ratio 3.7-5.6 VLDL 31 mg/dL High 2-29 LDL (Calc) 100 mg/dL High 20-99 52 Alt 19 U/L 3-42 Ast 16 U/L 8-42 Basic (BMP) 03/20/2015 [facility] Sodium 140 mmol/L 134-142 Potassium 4.6 mmol/L 3.5-5.2 Chloride 106 mmol/L 97-109 Carbon Dioxide 27 mmol/L 24-34 Glucose 103 mg/dL 70-105 BUN 21 mg/dL 6-26 Creatinine 0.8 mg/dL 0.5-1.4 Calcium 9.4 mg/dL 8.5-10.2 Anion Gap 12 mmol/L 6-14 Non Willow Egfr >60 >60 53 Willow Egfr >60 >60 54 Laboratory test finding 03/20/2015 [facility] Magnesium 1.8 mg/dL 1.5-2.7 Laboratory test finding 11/04/2014 [facility] Path [facility]G SEE NOTE 55 CBC With Auto Diff 09/17/2014 [facility] WBC 8.2 K/uL 4.1-11.0 RBC 4.27 M/uL 4.00-5.40 Hemoglobin 13.5 gm/dL 12.0-16.0 Hematocrit 40.1 % 36.0-47.0 MCV 93.9 fL 80.0-97.0 MCH 31.7 pg 27.0-32.0 MCHC 33.7 g/dL 32.0-36.0 RDW 12.5 % 11.5-14.5 PLT Count 301 K/ul 140-400 Neutrophil 55.8 % 35.0-75.0 Lymphocyte 31.0 % 16.0-52.0 Monocyte 8.8 % 2.0-10.0 Eosinophil 3.5 % 0.0-5.0 Basophil 0.9 % 0.0-4.0 Abs Neutrophils 4.6 K/uL 2.1-8.0 Abs Lymphocytes 2.5 K/uL 0.8-5.5 Abmon 0.7 K/uL 0.1-1.0 Abs Eosinophils 0.3 K/uL 0.0-0.5 Abs Basophils 0.1 K/uL 0.0-0.3 Laboratory test finding 09/17/2014 [facility] TSH 4.63 uIU/mL 0.34-5.60 Vitamin B12 300 pg/mL 180-914 Laboratory test finding 08/09/2014 [facility] Vit D,25 Hydroxy 42 ng/mL 31- 100 56 Lipid Treatment 08/09/2014 [facility] Cholesterol 185 mg/dL 50-199 Triglycerides 95 mg/dL 30-200 HDL 47 mg/dL 35-85 57 Chol/ HDL Ratio 3.9 ratio 3.7-5.6 VLDL 19 mg/dL 2-29 LDL (Calc) 119 mg/dL High 20-99 58 Alt 21 U/L 3-42 Ast 18 U/L 8-42 Basic (BMP) 08/09/2014 [facility] Sodium 140 mmol/L 134-142 Potassium 4.9 mmol/L 3.5-5.2 Chloride 105 mmol/L 97-109 Carbon Dioxide 30 mmol/L 24-34 Glucose 106 mg/dL High 70-105 BUN 17 mg/dL 6-26 Creatinine 0.8 mg/dL 0.5-1.4 Calcium 9.6 mg/dL 8.5-10.2 Anion Gap 10 mmol/L 6-14 Non Willow Egfr >60 >60 59 Willow Egfr >60 >60 60 Laboratory test 07/09/2014 [facility] Urine Culture Microbiology res 61 finding <SEE NOTE> Laboratory test 06/24/2014 [facility] Urine Culture Microbiology res Abnormal 62 finding <SEE NOTE> Lipid Panel 02/06/2014 [facility] Import Chol/HDL 4.3 ratio Ratio Cholesterol 194.0 mg/dL 50.0-199.0 HDL 45.0 mg/dL 29.0-86.0 LDL, Calculated 116.0 mg/dL 20.0-129.0 Triglycerides 165.0 mg/dL 30.0-249.0 vLDL 33.0 ng/dL Laboratory test finding 02/06/2014 [facility] Import Alt 20.0 U/L 9.0-52.0 Ast 16.0 U/L 14.0-36.0 BUN 28.0 mg/dL High 7.0-18.0 BUN/Creat Ratio 35.0 ratio High 12.0-20.0 Calcium 9.5 mg/dL 8.7-10.5 Chloride 107.0 mmol/L 98.0-107.0 Co2 24.0 mmol/L 22.0-30.0 Creatinine-Serum 0.8 mg/dL 0.7-1.2 Glucose 104.0 mg/dL 75.0-110.0 Magnesium 2.2 1.7-2.3 Potasium 4.3 mmol/L 3.6-5.0 Sodium 142.0 mmil/L 137.0-145.0 Vitamin D 39.0 ng/mL 30.0-100.0 eGFR 80.1 Laboratory test finding 09/07/2013 [facility] Import Gallbladder See Note 63 Lipid Panel 09/03/2013 [facility] Import Chol/HDL Ratio 4.7 ratio Cholesterol 225.0 mg/dL High 50.0-199.0 HDL 48.0 mg/dL 29.0-86.0 LDL, Calculated 156.0 mg/dL High 20.0-129.0 Triglycerides 105.0 mg/dL 30.0-249.0 vLDL 21.0 ng/dL Laboratory test finding 09/03/2013 [facility] [employer] Import Alt 20.0 U/L 9.0-52.0 Ast 16.0 U/L 14.0-36.0 BUN 18.0 mg/dL 7.0-18.0 BUN/Creat Ratio 22.5 ratio High 12.0-20.0 Calcium 9.4 mg/dL 8.7-10.5 Chloride 105.0 mmol/L 98.0-107.0 Co2 26.0 mmol/L 22.0-30.0 Creatinine-Serum 0.8 mg/dL 0.7-1.2 Glucose 99.0 mg/dL 75.0-110.0 Potasium 4.1 mmol/L 3.6-5.0 Sodium 141.0 mmil/L 137.0-145.0 eGFR 80.1 Urine Screen 09/03/2013 [facility] [employer] Import Urine Bilirubin - Negative Negative Dipstick Urine Blood Negative Negative Urine Clarity Clear Clear Urine Color Yellow Yellow Urine Glucose - Dipstick Negative mg/dL Negative Urine Ketone Negative mg/dL Negative Urine Leuk Esterase Negative Negative Urine Nitrite - Dipstick Negative Negative Urine PH 6.0 Low 6.5-7.5 Urine Protein - Dipstick Negative mg/dL Negative Urine Specific [place] <=1.005 Low 1.010-1.030 Urine Urobilinogen - Dipstick 0.2 E.U./dL 0.2-1.0 CBS W/Automated Diff 09/03/2013 [facility] Import Bas% 1.1 % 0.0-1.1 Baso # 0.06 K/uL 0.0-0.1 Eo% 3.7 % 0.0-6.6 Eos # 0.20 K/uL 0.0-0.5 Hematocrit 38.5 % 36.0-46.1 Hemoglobin 13.1 gm/dL 11.6-15.8 Lymph # 1.60 K/uL 0.8-3.4 Lymph % 29.7 % 17.0-46.1 Mean Cell Volume 93.0 fl 80.9-99.0 Mean Corpuscular HGB 31.6 pg 25.9-32.7 Mean Corpuscular HGB Conc 34.0 g/dL 30.8-34.3 Mean Platelet Volume 9.0 fL 8.9-12.4 [place] # 0.38 K/uL 0.3-0.9 [place] % 7.1 % 4.3-13.2 Neut# 3.15 K/uL 1.0-7.0 Neut% 58.4 % 40.4-72.8 Platelet Count 278 K/uL 155-360 Red Blood Count 4.14 M/uL 3.90-5.40 Red Cell Distri Width %CV 12.3 % 11.7-14.4 Red Cell Distri Width SD 41.0 fl 3-47 White Blood Count 5.4 K/uL 3.1-10.7 Laboratory test finding 09/03/2013 [facility] Import Alb/Glob 1.0 ratio Albumin 3.8 g/dL 3.5-5.0 Alkaline Phosphatase 71 U/L 50-136 Anion Gap 10 mEq/L 8-16 BUN 15 mg/dL 5-23 BUN/Creat 25.0 ratio Bilirubin,Total 0.3 mg/dL 0.2-1.2 Calcium 9.0 mg/dL 8.5-10.1 Carbon Dioxide 28 mEq/L 18-29 Chloride 108 mmol/L High 98-107 Creatinine 0.6 mg/dL 0.5-1.4 Globulin 3.8 g/dL 1.9-4.3 Glom Filtration Rate, Estimate >60 mL/min >60 Glucose 93 mg/dL 76-115 If >60 mL/min >60 64 Lipase 79 U/L 28-380 Potassium 3.9 mmol/L 3.5-5.1 SGPT/Alt 29 U/L Low 30-65 Sgot/Ast 16 U/L 16-40 Sodium 142 mmol/L 136-145 Total Protein 7.6 g/dL 6.3-8.0 Urine HCG (Qualitative) See Note 65 Laboratory test 07/12/2013 [facility] Import Ashley species Negative [ Negative] finding GC / Chlamydia neg neg 66 Gardnerella vaginalis Positive High [Negative] Genital Culture See Note 67 Gram Stain See Note 68 Trichomonas vaginalis Negative [Negative] Viral Culture See Note 69 Urine Culture bhargav 70 1 E03.9 E55.9 E78.2 Z79.899 2 Vitamin D deficiency has been defined by the [place] [employer] and an Endocrine Society practice guideline as a level of serum 25-OH vitamin D less than 20 ng/mL (1,2). The Endocrine Society went on to further define vitamin D insufficiency as a level between 21 and 29 ng/mL (2). 1. IOM ([place] [employer]). 2010. Dietary reference intakes for calcium and D. [place]: The National Academies Press. 2. Sharon MF, Moises NC, Donald FREGOSO, et al. Evaluation, treatment, and prevention of vitamin D deficiency: an Endocrine Society clinical practice guideline. JCEM. 2010; 96(7):1911-30. Performed at: RN - [facility] [address], [place], [place] [id number] Retail Coverage Merchandiser: Heather Herrera MD, Phone: [phone] 3 Reference Guidelines*: Desirable: ........... < 200 mg/dL Borderline High: ..... 200-239 mg/dL High: ................ >=240 mg/dL * The National Cholesterol Education Program (NCEP) 4 Reference Guidelines*: Normal: ............. < 150 mg/dL Borderline High: .... 150-199 mg/dL High: ............... 200-499 mg/dL Very High: .......... > 500 mg/dL * Source: National Cholesterol Education Program (NCEP) 5 Reference Guidelines*: Low HDL: ..... < 40 mg/dL Normal: ..... 40-60 mg/dL Desirable: ... > 60 mg/dL *The National Cholesterol Education Program(NCEP) 6 Reference Guidelines*: Optimal:........... <100 mg/dL Near Optimal....... 100-129 mg/dL Borderline High.... 130-159 mg/dL High............... 160-189 mg/dL Very High.......... >=190 mg/dL * Source: National Cholesterol Education Program (NCEP) 7 Microbiology results SOURCE Clean Catch Midstream FINAL RESULT >100,000 CFU/ML Mixed urogenital greg consistent with contamination. Request fresh specimen if indicated. 8 E03.9 E78.2 E55.9 R03.0 9 Reference Guidelines*: Desirable: ........... < 200 mg/dL Borderline High: ..... 200-239 mg/dL High: ................ >=240 mg/dL * The National Cholesterol Education Program (NCEP) 10 Reference Guidelines*: Normal: ............. < 150 mg/dL Borderline High: .... 150-199 mg/dL High: ............... 200-499 mg/dL Very High: .......... > 500 mg/dL * Source: National Cholesterol Education Program (NCEP) 11 Reference Guidelines*: Low HDL: ..... < 40 mg/dL Normal: ..... 40-60 mg/dL Desirable: ... > 60 mg/dL *The National Cholesterol Education Program(NCEP) 12 Reference Guidelines*: Optimal:........... <100 mg/dL Near Optimal....... 100-129 mg/dL Borderline High.... 130-159 mg/dL High............... 160-189 mg/dL Very High.......... >=190 mg/dL * Source: National Cholesterol Education Program (NCEP) 13 Note: Persistent reduction for 3 months or more in an eGFR <60 mL/min/1.73 m2 defines CKD. Patients with eGFR values >/=60 mL/min/1.73 m2 may also have CKD if evidence of persistent proteinuria is present. The original MDRD equation for estimated GFR is not valid for patients less than 18 years of age. Additional information may be found at www.kdoqi.org. 14 Vitamin D deficiency has been defined by the [place] [employer] and an Endocrine Society practice guideline as a level of serum 25-OH vitamin D less than 20 ng/mL (1,2). The Endocrine Society went on to further define vitamin D insufficiency as a level between 21 and 29 ng/mL (2). 1. IOM ([place] [employer]). 2010. Dietary reference intakes for calcium and D. [place]: The National Academies Press. 2. Sharon SALEH, Moises CLARK, Donald FREGOSO, et al. Evaluation, treatment, and prevention of vitamin D deficiency: an Endocrine Society clinical practice guideline. JCEM. 2010; 96(7):1911-30. Performed at: RN - [facility] [address] [id number] Retail Coverage Merchandiser: Heather Herrera MD, Phone: [phone] 15 R98.9 16 Vitamin D deficiency has been defined by the [place] [employer] and an Endocrine Society practice guideline as a level of serum 25-OH vitamin D less than 20 ng/mL (1,2). The Endocrine Society went on to further define vitamin D insufficiency as a level between 21 and 29 ng/mL (2). 1. IOM ([place] [employer]). 2010. Dietary reference intakes for calcium and D. [place]: The National Academies Press. 2. Moises Bai, Donald FREGOSO, et al. Evaluation, treatment, and prevention of vitamin D deficiency: an Endocrine Society clinical practice guideline. JCEM. 2010; 96(7):1911-30. Performed at: [facility] - [facility] [address] [id number] Retail Coverage Merchandiser: Heather Herrera MD, Phone: [phone] 17 Note: Persistent reduction for 3 months or more in an eGFR <60 mL/min/1.73 m2 defines CKD. Patients with eGFR values >/=60 mL/min/1.73 m2 may also have CKD if evidence of persistent proteinuria is present. The original MDRD equation for estimated GFR is not valid for patients less than 18 years of age. Additional information may be found at www.kdoqi.org. 18 Reference Guidelines*: Desirable: ........... < 200 mg/dL Borderline High: ..... 200-239 mg/dL High: ................ >=240 mg/dL * The National Cholesterol Education Program (NCEP) 19 Reference Guidelines*: Normal: ............. < 150 mg/dL Borderline High: .... 150-199 mg/dL High: ............... 200-499 mg/dL Very High: .......... > 500 mg/dL * Source: National Cholesterol Education Program (NCEP) 20 Reference Guidelines*: Low HDL: ..... < 40 mg/dL Normal: ..... 40-60 mg/dL Desirable: ... > 60 mg/dL *The National Cholesterol Education Program(NCEP) 21 Reference Guidelines*: Optimal:........... <100 mg/dL Near Optimal....... 100-129 mg/dL Borderline High.... 130-159 mg/dL High............... 160-189 mg/dL Very High.......... >=190 mg/dL * Source: National Cholesterol Education Program (NCEP) 22 E03.9,E78.2,E55.9 23 Vitamin D deficiency has been defined by the [place] [employer] and an Endocrine Society practice guideline as a level of serum 25-OH vitamin D less than 20 ng/mL (1,2). The Endocrine Society went on to further define vitamin D insufficiency as a level between 21 and 29 ng/mL (2). 1. IOM ([place] [employer]). 2010. Dietary reference intakes for calcium and D. [place]: The National Academies Press. 2. Sharon MF, Moises CLARK, Donald FREGOSO, et al. Evaluation, treatment, and prevention of vitamin D deficiency: an Endocrine Society clinical practice guideline. JCEM. 2010; 96(7):1911-30. Performed at: RN - [facility] [address] [id number] Retail Coverage Merchandiser: Heather Herrera MD, Phone: [phone] 24 Reference Guidelines*: Desirable: ........... < 200 mg/dL Borderline High: ..... 200-239 mg/dL High: ................ >=240 mg/dL * The National Cholesterol Education Program (NCEP) 25 Reference Guidelines*: Normal: ............. < 150 mg/dL Borderline High: .... 150-199 mg/dL High: ............... 200-499 mg/dL Very High: .......... > 500 mg/dL * Source: National Cholesterol Education Program (NCEP) 26 Reference Guidelines*: Low HDL: ..... < 40 mg/dL Normal: ..... 40-60 mg/dL Desirable: ... > 60 mg/dL *The National Cholesterol Education Program(NCEP) 27 Reference Guidelines*: Optimal:........... <100 mg/dL Near Optimal....... 100-129 mg/dL Borderline High.... 130-159 mg/dL High............... 160-189 mg/dL Very High.......... >=190 mg/dL * Source: National Cholesterol Education Program (NCEP) 28 ACUTE APPENDICITIS 29 POSSIBLE APPENDICITIS 30 URINE, CLEAN CATCH 31 Note: Persistent reduction for 3 months or more in an eGFR <60 mL/min/1.73 m2 defines CKD. Patients with eGFR values >/=60 mL/min/1.73 m2 may also have CKD if evidence of persistent proteinuria is present. The original MDRD equation for estimated GFR is not valid for patients less than 18 years of age. Additional information may be found at www.kdoqi.org. 32 Values below the stated reference ranges of AST and ALT can be seen in normal populations. Clinical correlation is suggested. 33 Instrument flagged sample for slide review. Less than 10% Bands seen, no other immature WBC's seen. RBC morphology essentially normal. Platelet estimate=NORMAL 34 E03.9 35 R03.0,E78.2,E55.9,F33.0,Z79.899 36 Note: Persistent reduction for 3 months or more in an eGFR <60 mL/min/1.73 m2 defines CKD. Patients with eGFR values >/=60 mL/min/1.73 m2 may also have CKD if evidence of persistent proteinuria is present. The original MDRD equation for estimated GFR is not valid for patients less than 18 years of age. Additional information may be found at www.kdoqi.org. 37 Vitamin D deficiency has been defined by the [place] [employer] and an Endocrine Society practice guideline as a level of serum 25-OH vitamin D less than 20 ng/mL (1,2). The Endocrine Society went on to further define vitamin D insufficiency as a level between 21 and 29 ng/mL (2). 1. IOM ([place] [employer]). 2010. Dietary reference intakes for calcium and D. [place]: The National Academies Press. 2. Sharon MF, Moises NC, Donald FREGOSO, et al. Evaluation, treatment, and prevention of vitamin D deficiency: an Endocrine Society clinical practice guideline. JCEM. 2010; 96(7):1911-30. Performed at: RN - [facility] [address] [id number] Retail Coverage Merchandiser: Heather Herrera MD, Phone: [phone] 38 Reference Guidelines*: Desirable: ........... < 200 mg/dL Borderline High: ..... 200-239 mg/dL High: ................ >=240 mg/dL * The National Cholesterol Education Program (NCEP) 39 Reference Guidelines*: Normal: ............. < 150 mg/dL Borderline High: .... 150-199 mg/dL High: ............... 200-499 mg/dL Very High: .......... > 500 mg/dL * Source: National Cholesterol Education Program (NCEP) 40 Reference Guidelines*: Low HDL: ..... < 40 mg/dL Normal: ..... 40-60 mg/dL Desirable: ... > 60 mg/dL *The National Cholesterol Education Program(NCEP) 41 Reference Guidelines*: Optimal:........... <100 mg/dL Near Optimal....... 100-129 mg/dL Borderline High.... 130-159 mg/dL High............... 160-189 mg/dL Very High.......... >=190 mg/dL * Source: National Cholesterol Education Program (NCEP) 42 SPECIMEN DESCRIPTION VAGINAL SPECIMEN GROUP B STREP CULT. POSITIVE: BETA HEMOLYTIC STREPTOCOCCI GROUP B B Y PCR CULTURE RESULTS NORMAL VAGINAL GREG NO NEISSERIA GONORRHOEAE ISOLATED REPORT STATUS FINAL 10/31/2015 Unless otherwise specified, testing performed by [facility] [address] [place] [id number] 43 Microbiology results SOURCE URINE FINAL RESULT No growth 44 HAS 5/2 OV 45 Note: Persistent reduction for 3 months or more in an eGFR <60 mL/min/1.73 m2 defines CKD. Patients with eGFR values >/=60 mL/min/1.73 m2 may also have CKD if evidence of persistent proteinuria is present. The original MDRD equation for estimated GFR is not valid for patients less than 18 years of age. Additional information may be found at www.kdoqi.org. 46 Reference Guidelines*: Desirable: ........... < 200 mg/dL Borderline High: ..... 200-239 mg/dL High: ................ >=240 mg/dL * The National Cholesterol Education Program (NCEP) 47 Reference Guidelines*: Normal: ............. < 150 mg/dL Borderline High: .... 150-199 mg/dL High: ............... 200-499 mg/dL Very High: .......... > 500 mg/dL * Source: National Cholesterol Education Program (NCEP) 48 Reference Guidelines*: Low HDL: ..... < 40 mg/dL Normal: ..... 40-60 mg/dL Desirable: ... > 60 mg/dL *The National Cholesterol Education Program(NCEP) 49 Reference Guidelines*: Optimal:........... <100 mg/dL Near Optimal....... 100-129 mg/dL Borderline High.... 130-159 mg/dL High............... 160-189 mg/dL Very High.......... >=190 mg/dL * Source: National Cholesterol Education Program (NCEP) 50 03/20 preOV 51 Per NCEP ATP III Guidelines: Results lower than 40 mg/dL are suggestive of increased risk for coronary artery disease. Results > or=to 60 mg/dL are considered a negative risk factor. 52 Per NCEP ATP III Guidelines: Normal Population <130 Patients with medical conditions: CHD/DM Optimal: <100 Borderline high: 130-159 High: 160-189 Very high: >189 53 Concerning GFR Guidelines: Normal function or mild renal disease, if clinically at risk: >/=60 mL/min Moderately decreased: 30-59 Severely decreased: 15-29 Renal failure: <15 Glomerular Filtration Rate (GFR) is estimated based on the MDRD equation, which assumes a steady state for creatinine as recommended by the National Kidney Disease Education Program in conjunction with the National Institutes of Health and the National Kidney Foundation. Clinical conditions in which it may be necessary to measure GFR by using clearance methods include extremes of age and body size, severe malnutrition or obesity, diseases of skeletal muscle, paraplegia or quadriplegia, vegetarian diet, rapidly changing kidney function, and calculation of the dose of potentially toxic drugs that are excreted by the kidneys. 54 Concerning GFR Guidelines for Americans: Normal function or mild renal disease, if clinically at risk: >/=60 mL/min Moderately decreased: 30-59 Severely decreased: 15-29 Renal failure: <15 [address] [place] [id number] Surgical Pathology Report Specimen(s) Received A: Under right breast Clinical Diagnosis and History Elliptical excision of raised skin lesion under right breast, suspect seborrheic keratosis. Gross Description Specimen received in formalin labeled with the patient's name is an unoriented elliptical skin excision measuring 0.9 x 0.5 x a depth of excision of 0.2 cm. The resection margin is inked black. The skin surface shows an ill defined, lu white nodule measuring 0.3 x 0.1 x 0.1 cm. The nodule measures within 0.1 cm of the resection margin. The specimen is sectioned and entirely submitted in one cassette. (The measurements of the specimen(s) may be less than those in vivo due to tissue shrinkage during histologic fixation and processing.) paw eb/jrf Diagnosis SKIN, UNDER RIGHT BREAST, EXCISION BIOPSY: Intradermal nevus. The benign nevus is noted to focally extend to the inked deep margin of the specimen. Multiple levels examined. Technical component processed at [facility], [facility], [address] [place] [address], [id number]. Diagnosis and reporting performed at [facility], [address] [place] [address]. Reported: 11/07/2014 10:00 Electronically Signed Out By Seth Hatfield M.D. paw ICD9 Codes 216.9 Unless otherwise specified, testing performed by [facility] [address] [place] [id number] 56 PREOV 08/18 57 Per NCEP ATP III Guidelines: Results lower than 40 mg/dL are suggestive of increased risk for coronary artery disease. Results > or=to 60 mg/dL are considered a negative risk factor. 58 Per NCEP ATP III Guidelines: Normal Population <130 Patients with medical conditions: CHD/DM Optimal: <100 Borderline high: 130-159 High: 160-189 Very high: >189 59 Concerning GFR Guidelines: Normal function or mild renal disease, if clinically at risk: >/=60 mL/min Moderately decreased: 30-59 Severely decreased: 15-29 Renal failure: <15 Glomerular Filtration Rate (GFR) is estimated based on the MDRD equation, which assumes a steady state for creatinine as recommended by the National Kidney Disease Education Program in conjunction with the National Institutes of Health and the National Kidney Foundation. Clinical conditions in which it may be necessary to measure GFR by using clearance methods include extremes of age and body size, severe malnutrition or obesity, diseases of skeletal muscle, paraplegia or quadriplegia, vegetarian diet, rapidly changing kidney function, and calculation of the dose of potentially toxic drugs that are excreted by the kidneys. 60 Concerning GFR Guidelines for Americans: Normal function or mild renal disease, if clinically at risk: >/=60 mL/min Moderately decreased: 30-59 Severely decreased: 15-29 Renal failure: <15 61 Microbiology results SOURCE MIDU FINAL RESULT No growth 62 Microbiology results SOURCE [facility]U COLONY COUNT >100,000 CFU/ML PRELIMINARY RESULT Gram Negative Prashant. ID & Sensitivity to Follow. FINAL RESULT Escherichia coli (Isolate 1) Sensitivity Analysis Isolate 1 --------- AMPICILLIN <=8 S AMPICILLIN/SULBACTAM <=8/4 S CEFAZOLIN <=2 S CEFEPIME >16 R CEFTAZIDIME <=1 S CEFTRIAXONE <=1 S CIPROFLOXACIN <=1 S NITROFURANTOIN <=32 S TETRACYCLINE <=4 S TRIMETHOPRIM/SULFAMETHOXAZ <=2/38 S S=Sensitive;I=Indeterminate;R=Resistant 63 OPERATION/PROCEDURE Lap. zarina. DIAGNOSIS: "GALLBLADDER, CHOLECYSTECTOMY": CHRONIC CHOLECYSTITIS. NO EVIDENCE OF SIGNIFICANT NEUTROPHILIC INFILTRATE, DYSPLASIA NOR NEOPLASIA APPRECIATED. BROCK/daja GROSS The specimen is received in a single container additionally labeled "GALLBLADDER ". This contains a grossly recognizable unopened gallbladder. This has a purple shiny smooth surface and overall measures 8.0 x 3.1 x 1.4 cm. in overall dimensions. There is a visible wall defect. The wall has a uniform thickness of 0.6 cm. The mucosal surface is purple-lu, velvety smooth and unremarkable. Trabeculations are noted. No quach reticular discoloration of cholesterolosis is noted. No stones are noted. Care Clinician sections are submitted within a single cassette. JW /clf MICROSCOPIC Sections show gallbladder mucosa lined by columnar epithelium with focal synechia. The submucosa has a mild infiltrate of lymphocytes and plasma cells. The muscular wall is slightly fibrotic and hypertrophied. PRE OPERATIVE DIAGNOSIS Acute cholecystitis REVIEW CODE CODE: I ----- Signed Electronically signed TIA RODGERS MD 09/11/13 1402 ----- 64 Note: Persistent reduction for 3 months or more in an eGFR <60 mL/min/1.73 m2 defines CKD. Patients with eGFR values >/=60 mL/min/1.73 m2 may also have CKD if evidence of persistent proteinuria is present. The original MDRD equation for estimated GFR is not valid for patients less than 18 years of age. Additional information may be found at [email or web address]. 65 09/03/13 LAB.EMIL NOT INDICATED 66 [facility] [address], [address] [place] [address] GC / CHLAMYDIA REPORT Name: Anthony Esquivel : 1960 (Age: 53) Sex: F Location: [facility] Med. Rec. # [id number] Date Collected: 07/12/2013 Billing #: [id number] Date Received: 07/12/2013 Requisition # [id number] Physician(s): BOZENA MENENDEZ MD Source of Specimen: Urine, APTIMA Results: Neisseria gonorrhoeae NEGATIVE Chlamydia trachomatis NEGATIVE Comment: This analysis was performed using second generation nucleic acid amplification testing (NAAT). Reported: 07/13/[address] Emmie Diaz [facility] ICD-9 Codes: 616.10 67 GENITAL GREG 68 GRAM STAIN ! GRAM STAIN SUSPICIOUS FOR BACTERIAL VAGINOSIS ! MANY GRAM VARIABLE COCCOBACILLI ! FEW GRAM POSITIVE COCCI 69 REFERENCE LAB#: NO VIRUS ISOLATED Testing Performed By: [facility] , [address] [place] [address] 70 COLONY COUNT ! 5,000 - 10,000 CFU/ml Organism 1 ! URETHRAL GREG Procedures Date Code Description Status 09/05/2018 01554 Brief Emotional/Behav Assessment W/ Scoring Doc Per Completed Standard Inst 09/05/2018 11233 Measure Blood Oxygen Level Single Determination Completed 05/26/2018 [id number] Mammogram Completed 05/03/2018 88905 Brief Emotional/Behav Assessment W/ Scoring Doc Per Completed Standard Inst 05/03/2018 [id number] Mammogram Completed 12/13/2017 04491 Measure Blood Oxygen Level Single Determination Completed 11/30/2017 03537 Measure Blood Oxygen Level Single Determination Completed 08/02/2017 45814 Measure Blood Oxygen Level Single Determination Completed 04/08/2017 28729 X-Ray Spine Lumbosacral Complete W/Oblique Views Completed 10/06/2016 76675 Measure Blood Oxygen Level Single Determination Completed 04/07/2016 80956 Destruction Benign Lesions Other Than Skin Tags Up To Completed 14 Lesions 08/22/2015 22662 Measure Blood Oxygen Level Single Determination Completed 11/04/2014 51844 Excise Benign Lesion 1.1-2CM Trunk/Arm/Leg Completed 06/24/2014 93879 Measure Blood Oxygen Level Single Determination Completed 05/13/2014 86392 Mammography Unilateral Completed 01/04/2014 [id number] Diabetic Retinal Eye Exam Completed 05/11/2013 45534 Mammography Unilateral Completed 09/19/2012 71309 Colonoscopy Flexible Diagnostic Completed 09/19/2012 [id number] Colonoscopy Completed 07/24/2012 17572 Bone Density Study, Single Photon Absorptiometry Completed 07/24/2012 921236756 Bone Mineral Density Test Completed 48869 Eye Exam Est Patient Intermediate Completed Encounters Type Date Location Provider Dx Diagnosis Office Visit 05/03/2018 [facility] Dusty, E03.9 Hypothyroidism, 8:15a MD Vincenzo unspecified E55.9 Vitamin D deficiency, unspecified E78.2 Mixed hyperlipidemia K21.9 Gastro-esophageal reflux disease without esophagitis R03.0 Elevated blood-pressure reading, w/o diagnosis of htn Z83.3 Family history of diabetes mellitus M54.5 Low back pain F33.0 Major depressive disorder, recurrent, mild Z79.899 Other exterminator (current) drug therapy Z68.38 Body mass index (BMI) 38.0-38.9, adult Z13.31 Encounter for screening for depression Office Visit 04/19/2018 4:00p [facility] Catarina Montano, R30.0 Dysuria SUBSTANCE ABUSE CLINICIAN Office Visit 12/13/2017 3:45p [facility] Shawna Katz MD H81.10 Benign paroxysmal vertigo, unspecified ear Z68.37 Body mass index (BMI) 37.0-37.9, adult Office Visit 11/30/2017 4:00p [facility] Phoenix Schumacher DO J20.9 Acute bronchitis, unspecified Z68.38 Body mass index (BMI) 38.0-38.9, adult Office Visit 10/17/2017 3:45p [facility] Vincenzo Montano MD H92.02 Otalgia , LEFT ear E03.9 Hypothyroidism, unspecified E55.9 Vitamin D deficiency, unspecified K21.9 Gastro-esophageal reflux disease without esophagitis F33.0 Major depressive disorder, recurrent, mild R03.0 Elevated blood-pressure reading, w/o diagnosis of htn M25.50 Pain in unspecified joint H81.10 Benign paroxysmal vertigo, unspecified ear E78.2 Mixed hyperlipidemia Z79.899 Other shelter (current) drug therapy Z11.59 Encounter for screening for other viral diseases Z68.38 Body mass index (BMI) 38.0-38.9, adult Office Visit 08/02/2017 4:30p [facility] Vincenzo Montano, J06.9 Acute upper MD respiratory infection, unspecified R05 Cough J01.10 Acute frontal sinusitis, unspecified Office Visit 04/08/2017 3:00p [facility] Vincenzo Montano MD M54.5 Low back pain E03.9 Hypothyroidism, unspecified E78.2 Mixed hyperlipidemia E55.9 Vitamin D deficiency, unspecified K21.9 Gastro-esophageal reflux disease without esophagitis R03.0 Elevated blood-pressure reading, w/o diagnosis of htn E66.9 Obesity, unspecified Z83.3 Family history of diabetes mellitus F33.0 Major depressive disorder, recurrent, mild Office Visit 10/06/2016 3:45p [facility] Vincenzo Montano MD M79.1 Myalgia J06.9 Acute upper respiratory infection, unspecified E03.9 Hypothyroidism, unspecified E78.2 Mixed hyperlipidemia E55.9 Vitamin D deficiency, unspecified K21.9 Gastro-esophageal reflux disease without esophagitis R03.0 Elevated blood-pressure reading, w/o diagnosis of htn E66.9 Obesity, unspecified F33.0 Major depressive disorder, recurrent, mild Z68.38 Body mass index (BMI) 38.0-38.9, adult Office Visit 09/20/2016 4:30p [facility] Vincenzo Montano M79.1 Myalgia MD Office Visit 04/07/2016 3:45p [facility] Vincenzo Montano, E03.9 MD Ryder unspecified E78.2 Mixed hyperlipidemia E55.9 Vitamin D deficiency, unspecified K21.9 Gastro-esophageal reflux disease without esophagitis B07.9 Viral wart, unspecified F33.0 Major depressive disorder, recurrent, mild R03.0 Elevated blood-pressure reading, w/o diagnosis of htn E66.9 Obesity, unspecified J45.20 Mild intermittent asthma, uncomplicated Office Visit 02/16/2016 3:30p [facility] Bozena Menendez MD Z01.419 Encntr for fruit trimmer exam (general) (routine) w/o abn findings 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 Z12.31 Encntr screen mammogram for malignant neoplasm of breast Z12.11 Encounter for screening for malignant neoplasm of colon Z68.39 Body mass index (BMI) 39.0-39.9, adult Z11.59 Encounter for screening for other viral diseases F33.0 Major depressive disorder, recurrent, mild Office Visit 01/23/2016 3:30p [facility] Vincenzo Montano MD L03.211 Cellulitis of face Office Visit 10/29/2015 3:45p [facility] Bozena Menendez MD N76.2 Acute vulvitis 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 Office Visit 10/22/2015 3:30p [facility] Vincenzo Montano, L03.011 Cellulitis of RIGHT MD finger Office Visit 10/06/2015 3:45p [facility] Vincenzo Montano, R39.15 Urgency of urination R03.0 Elevated blood-pressure reading, w/o diagnosis of htn E78.2 Mixed hyperlipidemia K21.9 Gastro-esophageal reflux disease without esophagitis M25.50 Pain in unspecified joint F33.0 Major depressive disorder, recurrent, mild E55.9 Vitamin D deficiency, unspecified E66.9 Obesity, unspecified L03.011 Cellulitis of RIGHT finger Z79.899 Other exterminator (current) drug therapy Office Visit 08/22/2015 3:30p [facility] Vincenzo Montano, J04.10 Acute tracheitis MD without obstruction Office Visit 04/07/2015 10:45a [facility] Vincenzo Montano, E78.2 Mixed hyperlipidemia K21.9 Gastro-esophageal reflux disease without esophagitis R03.0 Elevated blood-pressure reading, w/o diagnosis of htn Z83.3 Family history of diabetes mellitus E66.9 Obesity, unspecified F33.0 Major depressive disorder, recurrent, mild E55.9 Vitamin D deficiency, unspecified Office Visit 02/03/2015 3:30p [facility] Bozena Menendez MD 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 V72.31 Routine Cable Weaver Examination V76.12 Screening Mammogram Malig Jorge Luis Other V76.51 Special Screening For Malignant Neoplasms Colon V85.39 BMI Body Mass Index 39.0-39.9 Adult Office Visit 01/13/2015 9:30a [facility] Vincenzo Montano, 924.00 Contusion Thigh MD Office Visit 10/21/2014 3:30p [facility] Vincenzo Montano, 239.2 Neoplasm Unspecified Skin,Bone & Soft Tissue Office Visit 09/17/2014 2:00p [facility] Vincenzo Montano, 780.79 Malaise And Fatigue Other 272.2 Hyperlipidemia Mixed 530.81 Esophageal Reflux 268.9 Vitamin D Deficiency Unspec 796.2 Blood Pressure Reading Elevated W/O Hypertension V18.0 History Family Diabetes Mellitus V58.69 Medications Mcc (Current) Use Encounter Office Visit 06/24/2014 4:00p [facility] Catarina Montano, 465.9 URI Upper Respiratory SUBSTANCE ABUSE CLINICIAN Infections Acute Unspec Sites 599.0 UTI Urinary Tract Infection Site Not Spec Plan of Treatment Future Appointment(s):10/18/2018 3:45 pm - Vincenzo Montaon MD at [facility]2018 - Vincenzo Montano MDF33.0 Major depressive disorder, recurrent, mildFollow up:Follow up as cywpotofuX94.0 Acute stress dhtpjndqZ50.9 Acute upper respiratory infection, unspecified
[2018-09-08 18:21] VITALS: BP 128/79
--- NOTE | 2018-09-08 18:31 | UC ---
Respiratory Complaint HPI - HPI Summary HPI Summary: Per loan review analyst : "on tuesday saw PCP and dx viral URI. starting last night pt c/ o sob and wheezing and nonproductive cough-- worse today. using proventil inhaler prn w/ no relief. no fever/chills. " -here w/ 2 people that are in waiting room. quit smoking 39 yrs ago. asthma dx' d at age 51. never prescribed anything more than alb. last treatment 4.5 hrs ago at 1400. -never needed pred, intubation or hospitalization. - History of Current Complaint Chief Complaint: UCRespiratory Stated Complaint: COUGH/CONGESTION/WHEEZING Time Seen by Provider: 09/08/18 18:25 Pain Intensity: 8 - Allergies/Home Medications Allergies/Adverse Reactions: Allergies Allergy/AdvReac Type Severity Reaction Status Date / Time erythromycin base Allergy Severe ANAPHYLACTIC Verified 09/08/18 18:17 SHOCK meperidine [From Demerol] Allergy HALLUCINATE Verified 09/08/18 18:17 BEE VENOM Allergy Swelling Uncoded 09/08/18 18:17 PMH/Surg Hx/FS Hx/Imm Hx Previously Healthy: Yes Endocrine History: Thyroid Disease - Surgical History Surgical History: Yes Surgery Procedure, Year, and Place: TOTAL HYSTERECTOMY 1998. OVARIAN CYSTECTOMY 1981. TONSILLECTOMY. CARPAL TUNNEL RELEAE BILATERAL. APPENDECTOMY- 2017. LEFT THUMB- 3xPINS - Family History Known Family History: Positive: Respiratory Disease - brother w/ asthma Family History: no reported cardiovascular issues in family lineage - Social History Alcohol Use: None Substance Use Type: None Smoking Status (MU): Former Smoker Type: Cigarettes Amount Used/How Often: <1 YEAR Have You Smoked in the Last Year: No When Did the Patient Quit Smoking/Using Tobacco: 35 YRS AGO Household Exposure Type: Cigarettes - Immunization History Most Recent Tetanus Shot: 2008 Review of Systems All Other Systems Reviewed And Are Negative: Yes Constitutional: Positive: Negative Skin: Positive: Negative Eyes: Positive: Negative ENT: Positive: Negative Respiratory: Positive: Shortness Of Breath, Cough Cardiovascular: Positive: Negative Gastrointestinal: Positive: Negative Genitourinary: Positive: Negative Motor: Positive: Negative Neurovascular: Positive: Negative Musculoskeletal: Positive: Negative Neurological: Positive: Negative Psychological: Positive: Negative Is Patient Immunocompromised?: No Physical Exam Triage Information Reviewed: Yes Appearance: Well-Nourished, Ill-Appearing - smiling and very pleasant. increased breathing rate w/ some limitation in speaking full senteces. no stridor. no retractions Vital Signs: Initial Vital Signs Temp 99.3 F 09/08/18 18:17 Pulse 114 09/08/18 18:17 Resp 32 09/08/18 18:17 BP 128/79 09/08/18 18:17 Pulse Ox 97 09/08/18 18:17 Vital Signs Reviewed: Yes Eye Exam: Normal ENT Exam: Normal ENT: Positive: Pharynx normal, TMs normal, Uvula midline. Negative: Sinus tenderness Neck exam: Normal Neck: Positive: Supple, Nontender, No Lymphadenopathy Respiratory Exam: Normal Respiratory: Positive: No accessory muscle use, Respiratory distress - initial mild and then resolved w/ neb. appears very comfortable after neb w/o any increased work f breathing, Decreased breath sounds - b/l w/ mild scattered exp wheezing. cleared after nebulizer w/ much increased air movement, Wheezing. Negative: Crackles, Rhonchi Cardiovascular Exam: Normal Cardiovascular: Positive: RRR Abdominal Exam: Normal Abdomen Description: Positive: Nontender, Soft Musculoskeletal Exam: Normal Neurological Exam: Normal Psychological Exam: Normal Skin Exam: Normal Respiratory Course/Dx - Course Course Of Treatment: CXR - neg. NAD nebulizer w/ alb w/ significabnt imporvement. she feels better and can breathe easier. wheezing resolved, increased breath sounds to nml. RR normal at 16 - Differential Dx/Diagnosis Differential Diagnosis/HQI/PQRI: Asthma, Bronchitis Provider Diagnosis: Asthma exacerbation Discharge - Sign-Out/Discharge Documenting (check all that apply): Patient Departure All imaging exams completed and their final reports reviewed: Yes - Discharge Plan Condition: Stable Disposition: HOME Prescriptions: Budesonide/Formote 160/4.5(NF) [Symbicort 160/4.5 (NF)] 2 puff INH BID 15 Days # 1 mdi predniSONE [Prednisone 20 MG TAB] 40 mg PO DAILY 5 Days #10 tablet Patient Education Materials: Bronchospasm (ED) Referrals: Vincenzo Montano MD [Primary Care Provider] - 3 Days Additional Instructions: Make sure to use the prednisone daily x 5 days. You do not have to taper this dose down. Use the albuterol puffer every 4 hrs while sick. Rinse your mouth out after every use of the budesonide spray. You should go to the ER with any worsening of your breathing again. The chest xray was negative for pneumonia. - Billing Disposition and Condition Condition: STABLE Disposition: Home
[2018-09-08] MEDS ORDERED: Albuterol 2.5 MG/3 ML NEB.SOL* (0.083%) INH ONE (18:32)
--- NOTE | 2018-09-08 21:26 | UC ---
- Progress Note Progress Note: budesonide rx was $400 per pt when she called back. dc inhaler, give medrol dose pack. Course/Dx - Diagnoses Provider Diagnoses: Asthma exacerbation Discharge - Sign-Out/Discharge Documenting (check all that apply): Post-Discharge Follow Up All imaging exams completed and their final reports reviewed: Yes - Discharge Plan Condition: Stable Disposition: HOME Prescriptions: Budesonide/Formote 160/4.5(NF) [Symbicort 160/4.5 (NF)] 2 puff INH BID 15 Days # 1 mdi predniSONE [Prednisone 20 MG TAB] 40 mg PO DAILY 5 Days #10 tablet Patient Education Materials: Bronchospasm (ED) Referrals: Vincenzo Montano MD [Primary Care Provider] - 3 Days Additional Instructions: Make sure to use the prednisone daily x 5 days. You do not have to taper this dose down. Use the albuterol puffer every 4 hrs while sick. Rinse your mouth out after every use of the budesonide spray. You should go to the ER with any worsening of your breathing again. The chest xray was negative for pneumonia. - Billing Disposition and Condition Condition: STABLE Disposition: Home
== END 2018-09-08 19:31 | disposition home or self-care (01) ==
LOC: UCCORT 18:02
DX: J45.901 Unspecified asthma with (acute) exacerbation (principal); Z87.891 Personal history of nicotine dependence; Z88.1 Allergy status to other antibiotic agents; Z88.8 Allergy status to other drugs, medicaments and biological substances; Z91.030 Bee allergy status
CPT/HCPCS: 71046; 99212; G0463